=== PATIENT | female | born 1965 | race Caucasian/White ===

== ENCOUNTER 2016-06-21 21:34 | Emergency (ER) | payer OTHER, MEDICARE ==
--- NOTE | ~2016-06-21 | ER ---
PATIENT'S NAME: MILADYS WEINBERG [facility] AGE: 50 Y [address] ROOM: [place] [id number] LOCATION: [facility] ADMIT DATE: 06/21/2016 ER/Outpatient Report DISCHARGE DATE: 06/22/2016 FAMILY PHYSICIAN: Bart Clements MD ATTENDING PHYSICIAN: Evangelina Hawkins Time of Arrival: 2134 hours. Time of Evaluation: 2150 hours. CHIEF COMPLAINT: This is a 50-year-old female with multiple medical problems. She is in with the complaint of fever, generalized body aches, chills and an area of redness, swelling and induration on her anterior abdominal wall. HISTORY OF PRESENT ILLNESS: The patient reports that she had gastric sleeve procedure performed in [place] about 12 years ago. She states that over the past year and a half she has had complications that included an esophageal ulcer and gastric ulcer. She had a revision of her gastric limiting procedure on the 03 of June. This was done in [place]. Since then, she has had an area of tenderness and firmness at 1 of the abdominal wall puncture sites. This area has become red and definitely more swollen today. She states the fever and chills and body aches began yesterday and became much worse today. PAST MEDICAL HISTORY: Also significant for sarcoidosis and multiple sclerosis. FAMILY SOCIAL HISTORY: She is . She is a nonsmoker. PHYSICAL EXAMINATION: GENERAL: Alert, poorly nourished, ill-appearing female who appeared to be quite uncomfortable. VITAL SIGNS: She is tachycardiac and febrile, in no acute physiologic distress. SKIN: Warm and dry. Color is pale. HEENT: Head, ears, eyes, nose, and throat are normal. NECK: Supple. HEART: Had a regular rate and rhythm without murmur. LUNGS: She had diminished breath sounds in both bases. ABDOMEN: Soft. She had an area of redness and induration and fluctuance at 1 of the puncture sites that was quite tender, pus could be expressed from the right upper quadrant puncture site. This did not appear to communicate with the primary abscess. BACK: Had a normal contour. EXTREMITIES: Normal. PATIENT'S NAME: MILADYS WEINBERG [facility] AGE: 50 Y [address] ROOM: [place] [id number] LOCATION: ED ADMIT DATE: 06/21/2016 ER/Outpatient Report DISCHARGE DATE: 06/22/2016 FAMILY PHYSICIAN: Bart Clements MD ATTENDING PHYSICIAN: Evangelina Hawkins NEUROLOGIC: Normal. LABORATORY DATA: CBC revealed an elevated white blood cell count of 17,000. Comprehensive metabolic profile was unremarkable. Urinalysis was negative. CT of abdomen and pelvis revealed an abdominal wall abscess with extension through ventral hernia and through the intraabdominal space. EMERGENCY ROOM COURSE: I discussed the case with Dr. Barbosa, the surgeon distribution coordinator and he recommended transferring the patient to [place] where her recent surgery had been performed. ASSESSMENT: Postoperative wound abscess involving the abdominal wall and the intraperitoneal cavity. PLAN: Transfer to [facility]. I discussed the case with Dr. Sequeira and he agreed to accept the patient. The patient was given Zosyn and vancomycin IV in the emergency department. EVANGELINA HAWKINS MD JDB/modl /[id number] d: 06/22/16 0503 t: 06/22/16 0602, OUTPATIENT REPORT
[~2016-06-21 21:34] MED LIST: AUBAGIO14 MG PO; COLACE100 MG PO; DULCOLAX5 MG PO; EFFEXOR XR75 MG PO; ESTRACE0.5 MG PO; LISINOPRIL5 MG PO; PLEXUS PO; PROTONIX40 MG PO; TYLENOL325 MG PO; VESICARE5 MG PO; ZANTAC (NON-FO150 MG PO; ZOFRAN4 MG PO; [UNRECOGNIZED DRUG - REMARK] PO
[2016-06-21 23:20] LABS: BASOPHIL # 0.1 K/uL (0.0-0.2); BASOPHIL % 0.4 %; EOSINOPHIL # 0.1 K/uL (0.0-0.5); EOSINOPHIL % 0.7 %; HEMATOCRIT 31.5 % (33.0-46.0); HEMOGLOBIN 9.6 g/dL (10.0-15.0); IMMATURE GRANULOCYTE # 0.1 K/uL (0.0-0.3); IMMATURE GRANULOCYTE % 0.7 %; LYMPHOCYTE # 1.8 K/uL (0.8-4.0); LYMPHOCYTE % 10.1 %; MCH 24.6 pg (27.0-34.0); MCHC 30.5 gm/dL (32.0-36.5); MCV 80.6 fl (83.0-98.0); MONOCYTE # 1.6 K/uL (0.0-1.0); MONOCYTE % 8.6 %; NEUTROPHIL # (ANC) 14.5 K/uL (1.8-7.8); NEUTROPHIL % 79.5 %; NRBC % 0 /100WBC (0-0.00); PLATELET COUNT 489 K/uL (150-450); RDW-CV 15.7 % (11.9-14.6)
[2016-06-21 23:21] LABS: RBC 3.91 M/uL (3.50-5.50); WBC 18.3 K/uL (4.0-11.0)
[2016-06-21 23:27] LABS: BLOOD URINE 10 /UL (NEGATIVE); COLOR URINE YELLOW (YELLOW); GLUCOSE URINE NEGATIVE (NEGATIVE); KETONE URINE 5 mg/dL (NEGATIVE); LEUKOCYTES URINE 25 /UL (NEGATIVE); NITRITE URINE NEGATIVE (NEGATIVE); PROTEIN URINE 30 mg/dL (NEGATIVE); SPEC GRAVITY URINE 1.025 (1.003-1.035); TURBIDITY URINE CLEAR (CLEAR); UROBILINOGEN URINE 8 mg/dL (NORMAL)
[2016-06-21 23:37] LABS: ALK PHOS 143 IU/L (33-138); ALT 15 IU/L (12-78); ANION GAP 12.6 (10.0-19.0); AST 17 IU/L (10-40); BLOOD UREA NITROGEN 16 mg/dL (6-24); CALCIUM 8.8 mg/dL (8.5-10.5); CHLORIDE 102 mMol/L (96-110); CO2 29 mMol/L (22-32); CREATININE 0.8 mg/dL (0.5-1.1); ESTIMATED GFR (MDRD EQUATION) > 60; POTASSIUM 4.6 mMol/L (3.7-5.1); SODIUM 139 mMol/L (135-145); TOTAL BILIRUBIN 0.4 mg/dL (0.0-1.5); TOTAL PROTEIN 8.1 g/dL (6.0-8.4)
[2016-06-21 23:47] LABS: BACTERIA URINE MODERATE (NEGATIVE); MUCUS URINE 1+ (NEGATIVE); RBC URINE 0-2 #/HPF (NEGATIVE)
[2016-06-25] MEDS ORDERED: LACTINEX (FLORA1 TAB (16:14)
[2016-06-25] MEDS ORDERED: [UNRECOGNIZED DRUG - OTHER] (16:15)
[2016-06-25] MEDS ORDERED: VITAMIN D35000 UNI1 (16:16)
[2016-06-25] MEDS ORDERED: ROXICODONE5 MG (16:17)
[2016-06-25] MEDS ORDERED: PANTOPRAZOLE SO20 MG (16:18)
[2016-06-25] MEDS ORDERED: ZOFRAN4 MG (16:19)
[2016-06-25] MEDS ORDERED: LIBRIUM5 MG (16:19)
[2016-06-25] MEDS ORDERED: AMOXICILLI125 MG/5 M (16:20)
[2016-06-25] MEDS ORDERED: AUGMENTIN200 MG/5 M ×2 (16:20→16:22)
== END 2016-06-22 01:48 | disposition disaster alternative care site (69) ==
LOC: GMED 21:34
PROVIDERS: Emergency Medicine
DX: T81.4XXA Infection following a procedure, initial encounter (principal); K65.1 Peritoneal abscess; L02.211 Cutaneous abscess of abdominal wall; G35 Multiple sclerosis; D86.9 Sarcoidosis, unspecified; Z87.11 Personal history of peptic ulcer disease; Z91.040 Latex allergy status; Z87.19 Personal history of other diseases of the digestive system; Z79.899 Other long term (current) drug therapy
CPT/HCPCS: J1170; J2405; J2543; J3370; J7030; J7050; Q9967

== ENCOUNTER → 2016-10-17 | Outpatient (CLI) | payer OTHER, MEDICARE ==
[~2016-10-17] MED LIST changes: +AMOXICILLI125 MG/5 M; +AUGMENTIN200 MG/5 M; +LACTINEX (FLORA1 TAB; +LIBRIUM5 MG; +PANTOPRAZOLE SO20 MG; +ROXICODONE5 MG; +VITAMIN D35000 UNI1; +ZOFRAN4 MG; +[UNRECOGNIZED DRUG - OTHER]
[2016-10-17 09:03] LABS: CREATININE 0.9 mg/dL (0.5-1.1)
== END | disposition disaster alternative care site (69) ==
LOC: GLAB 08:27 → GRAD 08:30
PROVIDERS: Surgery
DX: Z01.818 Encounter for other preprocedural examination (principal); S31.109D Unspecified open wound of abdominal wall, unspecified quadrant without penetration into peritoneal cavity, subsequent encounter; Z93.1 Gastrostomy status
CPT/HCPCS: Q9967